=== PATIENT | male | born 1960 | race Caucasian/White ===

== ENCOUNTER 2020-03-16 18:58 | Emergency (ER) | payer OTHER ==
[~2020-03-16] VITALS: Ht 165.1 cm; Wt 90.7 kg
[2020-03-16] MEDS ORDERED: METFORMIN HCL1000 MG PO (19:23)
[2020-03-16] MEDS ORDERED: NORCO 5-325 TA1 EACH PO (20:15)
[2020-03-16] MEDS ORDERED: KEFLEX500 MG PO (20:15)
== END 2020-03-16 21:15 | disposition home or self-care (01) ==
LOC: ED 18:58
DX: S68.623A Partial traumatic transphalangeal amputation of left middle finger, initial encounter (principal); S68.625A Partial traumatic transphalangeal amputation of left ring finger, initial encounter; E11.9 Type 2 diabetes mellitus without complications; Z87.891 Personal history of nicotine dependence; Z79.84 Long term (current) use of oral hypoglycemic drugs; X58.XXXA Exposure to other specified factors, initial encounter
CPT/HCPCS: 64450; 73130; 90471; 90715; 99283-25; J0690